=== PATIENT | female | born 1995 | race Caucasian/White ===

== ENCOUNTER 2018-03-26 22:17 | Emergency (ER) | payer OTHER ==
[~2018-03-26 22:17] MED LIST: birth control
[2018-03-27 05:00] LABS: BACTERIA,URINE FEW /HPF (0-FEW); BILIRUBIN,URINE NEG (NEG); CLARITY,URINE HAZY; COLOR,URINE AMBER; GLUCOSE,URINE NEG (NEG); NITRITE,URINE NEG (NEG); RBC,URINE TNTC /HPF (0-2); SQUAMOUS EPITHELIAL CELL,UR FEW /LPF; UROBILINOGEN,URINE 0.2 mg/dL (0.2 mg/dL)
[2018-03-27 05:01] LABS: U PREG PATIENT NEGATIVE (NEG)
[2018-03-27 05:03] LABS: BASO # 0.1 x10^3/uL (0.0-0.2); BASO % 1 % (0-3); EOS # 0.1 x10^3/uL (0.0-0.7); EOS % 1 % (0-3); HEMATOCRIT 42.1 % (36.0-47.0); HEMOGLOBIN 14.2 g/dL (12.0-15.5); LYMPH # 2.7 x10^3/uL (1.0-4.8); LYMPH % 27 % (24-48); MEAN CORPUSCULAR HEMOGLOBIN 28 pg (25-35); MEAN CORPUSCULAR HGB CONC 34 g/dL (31-37); MEAN CORPUSCULAR VOLUME 82 fL (79-100); MONO # 0.6 x10^3/uL (0.0-1.1); MONO % 6 % (0-9); NEUT # 6.7 x10^3uL (1.8-7.7); NEUT % 66 % (31-73); PLATELET COUNT 334 x10^3/uL (140-400); RED BLOOD COUNT 5.13 x10^6/uL (3.50-5.40); RED CELL DISTRIBUTION WIDTH 14.2 % (11.5-14.5); WHITE BLOOD COUNT 10.1 x10^3/uL (4.0-11.0)
[2018-03-27 05:06] LABS: CALCIUM 8.5 mg/dL (8.5-10.1); CREATININE 0.8 mg/dL (0.6-1.0); GFR 90.5; POTASSIUM 3.4 mmol/L (3.5-5.1)
--- NOTE | 2018-03-27 06:02 | ED.ADGEN ---
Past History Past Medical History: Anemia, Constipation, UTI Past Surgical History: No Surgical History Smoking: Non-smoker Alcohol Use: None Drug Use: None Adult General Chief Complaint Chief Complaint ".. I seen my DrGabino up stairs.. she said I had a UTI.. and I just completed my Bactrim.. I... I am still constipated.. and I feel like I can't urinate..." HPI HPI Patient is a 22 year old female who presents with complaints of constipation, recent UTI, distention, generalized abdomen discomfort and urinary retention. Patient has just completed 3 days of Bactrim twice a day. Patient did have a hard stool this morning. Patient denies any travel or specific ill contacts. Patient denies any history immunosuppression. Patient denies any history of renal stones with him or family members. Patient denies any history of colitis with her or family members. Patient states she is just finishing her period. Denies any intake of bad food. No hx. of STD's or concerns. Denies trauma. Review of Systems Review of Systems Constitutional: Denies fever or chills [] Eyes: Denies change in visual acuity, redness, or eye pain [] HENT: Denies nasal congestion or sore throat [] Respiratory: Denies cough or shortness of breath [] Cardiovascular: No additional information not addressed in HPI [] GI: Complaints of generalized abdominal pain, nausea. No vomiting, bloody stools or diarrhea []complaints of constipation : Denies dysuria or hematuria [] Musculoskeletal: Denies back pain or joint pain [] Integument: Denies rash or skin lesions [] Neurologic: Denies headache, focal weakness or sensory changes [] Endocrine: Denies polyuria or polydipsia [] All other systems were reviewed and found to be within normal limits, except as documented in this note. Family History Family History Noncontributory to presentation Current Medications Current Medications See nursing for home medications Allergies Allergies Allergies Coded Allergies Type Severity Reaction Last Updated Verified No Known Drug Allergies 12/27/13 No Physical Exam Physical Exam Constitutional: Well developed, well nourished, mild distress, non-toxic appearance. [] HENT: Normocephalic, atraumatic, bilateral external ears normal, oropharynx moist, no oral exudates, nose normal. [] Eyes: PERRLA, EOMI, conjunctiva normal, no discharge. [] Neck: Normal range of motion, no tenderness, supple, no stridor. [] Cardiovascular:Heart rate regular rhythm, no murmur [] Lungs & Thorax: Bilateral breath sounds equal at apex auscultation [] Abdomen: Bowel sounds normal, soft, mild generalized tenderness, no masses, no pulsatile masses. Distended. Declines rectal or vaginal exam at this time. No true rebound Skin: Warm, dry, no erythema, no rash. [] Back: No tenderness, no CVA tenderness. [] Extremities: No tenderness, no cyanosis, no clubbing, ROM intact, no edema. [] No psoas or heeltap. Neurologic: Alert and oriented X 3, normal motor function, normal sensory function, no focal deficits noted. [] Psychologic: Affect anxious, judgement normal, mood normal. [] Current Patient Data Lab Results Laboratory Tests Test 03/27/18 00:01 03/27/18 00:31 Urine Collection Type Unknown Urine Color Cindy Urine Clarity Hazy Urine pH 6.5 Urine Specific [place] 1.020 Urine Protein 30 mg/dl (NEG-TRACE) Urine Glucose (UA) Neg mg/dL (NEG) Urine Ketones (Stick) Trace mg/dL (NEG) Urine Blood Large (NEG) Urine Nitrite Neg (NEG) Urine Bilirubin Neg (NEG) Urine Urobilinogen Dipstick 0.2 mg/dL (0.2 mg/dL) Urine Leukocyte Esterase Trace (NEG) Urine RBC Tntc /HPF (0-2) Urine WBC 5-10 /HPF (0-4) Urine Squamous Epithelial Cells Few /LPF Urine Bacteria Few /HPF (0-FEW) Urine Test Negative (NEG) White Blood Count 10.1 x10^3/uL (4.0-11.0) Red Blood Count 5.13 x10^6/uL (3.50-5.40) Hemoglobin 14.2 g/dL (12.0-15.5) Hematocrit 42.1 % (36.0-47.0) Mean Corpuscular Volume 82 fL (79-100) Mean Corpuscular Hemoglobin 28 pg (25-35) Mean Corpuscular Hemoglobin Concent 34 g/dL (31-37) Red Cell Distribution Width 14.2 % (11.5-14.5) Platelet Count 334 x10^3/uL (140-400) Neutrophils (%) (Auto) 66 % (31-73) Lymphocytes (%) (Auto) 27 % (24-48) Monocytes (%) (Auto) 6 % (0-9) Eosinophils (%) (Auto) 1 % (0-3) Basophils (%) (Auto) 1 % (0-3) Neutrophils # (Auto) 6.7 x10^3uL (1.8-7.7) Lymphocytes # (Auto) 2.7 x10^3/uL (1.0-4.8) Monocytes # (Auto) 0.6 x10^3/uL (0.0-1.1) Eosinophils # (Auto) 0.1 x10^3/uL (0.0-0.7) Basophils # (Auto) 0.1 x10^3/uL (0.0-0.2) Sodium Level 136 mmol/L (136-145) Potassium Level 3.4 mmol/L (3.5-5.1) L Chloride Level 102 mmol/L (98-107) Carbon Dioxide Level 21 mmol/L (21-32) Anion Gap 13 (6-14) Blood Urea Nitrogen 12 mg/dL (7-20) Creatinine 0.8 mg/dL (0.6-1.0) Estimated GFR (Cockcroft-Gault) 90.5 Glucose Level 92 mg/dL (70-99) Calcium Level 8.5 mg/dL (8.5-10.1) EKG EKG [] Radiology/Procedures Radiology/Procedures My interpretation acute abdomen film shows no acute cardiopulmonary findings. No free air in the diaphragm. Nonobstructive bowel gas pattern.[] Course & Med Decision Making Course & Med Decision Making Pertinent Labs and Imaging studies reviewed. (See chart for details) Patient urinated and then had a check for residual urine- patient had less than 50 mL Patient to remain on a clear fluid diet for the next couple days. Patient to push clear fluids. Patient take Tylenol and ibuprofen for discomfort. Patient return if any focalization of pain. If increased pain return for a reexam. Patient expect diarrhea by morning due to the milk of magnesia. Patient to follow-up primary care. Patient to push fruit juices for her low potassium. Patient return if any concerns. [] Final Impression Final Impression 1. Abdomen pain 2. Constipation 3. Low Potassium 3.4 [] Dragon Disclaimer Dragon Disclaimer This electronic medical record was generated, in whole or in part, using a voice recognition dictation system. MELYSSA HERNANDEZ MD Mar 27, 2018 06:02
--- NOTE | 2018-03-28 14:46 | RAD ---
EXAM: Abdomen acute complete. HISTORY: Pain. COMPARISON: None. FINDINGS: A frontal view of the chest and frontal upright and supine views of the abdomen are obtained. There is no infiltrate, pleural effusion or pneumothorax. The heart is normal in size. There is a small amount of gas within nondistended loops of bowel within the abdomen. There is no bowel distention or free air. IMPRESSION: 1. No acute pulmonary finding. 2. Nonobstructive bowel gas pattern. Electronically signed by: Loni Wolff MD (03/28/2018 2:43 PM) [id number]
== END 2018-03-27 03:15 | disposition home or self-care (01) ==
LOC: ER 22:17
DX: K59.00 Constipation, unspecified (principal); E87.6 Hypokalemia; Z86.2 Personal history of diseases of the blood and blood-forming organs and certain disorders involving the immune mechanism; Z87.440 Personal history of urinary (tract) infections
CPT/HCPCS: 36415; 74022; 80048; 81001; 81025; 85025; 87086; 99284

== ENCOUNTER → 2018-08-23 | Outpatient (CLI) | payer OTHER ==
--- NOTE | 2018-08-23 13:24 | RAD ---
Abdominal ultrasound complete HISTORY: Abdominal pain in March 2018. FINDINGS: Pancreas, aorta and inferior vena cava are poorly visualized. No evidence of gallstone or gallbladder wall thickening. The liver is mildly enlarged at 19 cm of the right lobe. Right kidney measures 10.9 seen longitudinal without hydronephrosis. Left kidney measures 10.3 seen longitudinal without hydronephrosis. Spleen is not enlarged. Common bile duct measures 5 mm. IMPRESSION: 1. Mild hepatomegaly. 2. Limited visualization of midline structures. Pelvic ultrasound HISTORY: Pelvic pain. UTIs. Transabdominal scan: Uterus measures 8.2 x 3.9 x 5.4 cm. Endometrial stripe measures 6 mm. Left ovary measures 3.0 cm with intact blood supply. Right ovary measures 3.7 cm with intact blood supply. Urinary bladder volume is 558 cc prior to voiding. Post void urinary bladder volume is 53 cc. There is mild free fluid in the cul-de-sac with internal echoes. Endovaginal scan: Uterus measures 8.3 x 3.7 x 5.8 cm. Endometrium is homogeneous and measures 4 mm thickness. Right ovary measures 3.9 cm with multiple small follicles and intact vascularity. Left ovary measures 3.6 cm with small follicles and intact vascularity. IMPRESSION: 1. No evidence of abnormality involving uterus or ovaries. 2. Mild free pelvic fluid with internal echoes, raising the question of hemoperitoneum. Although nonspecific this can be seen with a ruptured ovarian cyst. Electronically signed by: Richy Soares MD (08/23/2018 1:21 PM) [id number]
== END | disposition home or self-care (01) ==
LOC: US 08:16
PROVIDERS: ATTEND Physician Assistant Medical
DX: R16.0 Hepatomegaly, not elsewhere classified (principal)
CPT/HCPCS: 76700; 76830; 76856

== ENCOUNTER → 2018-12-20 | Outpatient (CLI) | payer OTHER ==
[2018-12-20 16:26] LABS: BASO # 0.1 x10^3/uL (0.0-0.2); BASO % 1 % (0-3); EOS # 0.1 x10^3/uL (0.0-0.7); EOS % 2 % (0-3); HEMATOCRIT 40.9 % (36.0-47.0); HEMOGLOBIN 13.8 g/dL (12.0-15.5); LYMPH % 35 % (24-48); MEAN CORPUSCULAR HEMOGLOBIN 29 pg (25-35); MEAN CORPUSCULAR HGB CONC 34 g/dL (31-37); MEAN CORPUSCULAR VOLUME 84 fL (79-100); MONO # 0.6 x10^3/uL (0.0-1.1); MONO % 7 % (0-9); NEUT # 4.8 x10^3uL (1.8-7.7); NEUT % 56 % (31-73); PLATELET COUNT 341 x10^3/uL (140-400); RED BLOOD COUNT 4.85 x10^6/uL (3.50-5.40); RED CELL DISTRIBUTION WIDTH 13.8 % (11.5-14.5); WHITE BLOOD COUNT 8.5 x10^3/uL (4.0-11.0)
[2018-12-20 16:42] LABS: ALBUMIN 3.8 g/dL (3.4-5.0); CALCIUM 8.5 mg/dL (8.5-10.1); CREATININE 0.7 mg/dL (0.6-1.0); GFR 104.6; TOTAL BILIRUBIN 0.2 mg/dL (0.2-1.0); TOTAL PROTEIN 7.7 g/dL (6.4-8.2)
[2018-12-21 20:37] LABS: THYROID STIM HORMONE (TSH) 1.078 uIU/mL (0.358-3.740)
== END | disposition home or self-care (01) ==
LOC: PMG 15:39
PROVIDERS: ATTEND Registered Nurse
DX: Z13.6 Encounter for screening for cardiovascular disorders (principal); Z13.29 Encounter for screening for other suspected endocrine disorder; R07.89 Other chest pain; R00.0 Tachycardia, unspecified; R53.83 Other fatigue
CPT/HCPCS: 36415; 80053; 80061; 84443; 85025

== ENCOUNTER 2020-05-11 19:07 | Emergency (ER) | payer BC, OTHER ==
[~2020-05-11] VITALS: Ht 154.9 cm; Wt 84.3 kg
[2020-05-11 19:10] VITALS: BP 106/54
--- NOTE | 2020-05-11 19:35 | PHYS DOC ---
Past History Past Medical History: Anemia, Constipation, UTI Past Surgical History: Other Additional Past Surgical Histo: right elbow Smoking: Non-smoker Alcohol Use: None Drug Use: None General Adult EDM: Chief Complaint: ABDOMINAL PAIN IN HPI: HPI: Patient is a 24-year-old female at approximately 8 weeks gestational age by LMP of 123. Patient states that today she has had 4 episodes of emesis after eating. Also complaining of some lower abdominal intermittent cramping. Denies any pain now. Denies any vaginal bleeding or discharge. States she was treated for urinary tract infection and completed antibiotics 2 to 3 weeks ago. Patient states she has been having some dysuria without any hematuria. Denies any systemic complaints. Last bowel movement 2 days ago. Denies any complications with this or previous . Has not seen her [employer] for this yet. Review of Systems: Review of Systems: All other systems within normal limits except for as noted in the HPI Allergies: Allergies: Allergies Coded Allergies Type Severity Reaction Last Updated Verified sulfamethoxazole Allergy Unknown 05/11/20 Yes trimethoprim Allergy Unknown 05/11/20 Yes Physical Exam: PE: Constitutional: Well developed, well nourished, no acute distress, non-toxic appearance. [] HENT: Normocephalic, atraumatic, bilateral external ears normal, nose normal. [] Eyes: PERRLA, conjunctiva normal, no discharge. [] Neck: No rigidity, supple, no stridor. [] Cardiovascular: Regular rate and rhythm, brisk cap refill [] Lungs & Thorax: Non labored symmetric respirations, no tachypnea or respiratory distress [] Abdomen: Soft, nondistended, no masses. No guarding or rebound. No point tenderness.. Skin: Warm, dry, no erythema, no rash. [] Back: Unremarkable Extremities: No deformities, range of motion grossly intact, no lower extremity edema [] Neurologic: Alert and oriented X 3, no focal deficits noted. [] Psychologic: Affect normal, judgement normal, mood normal. [] Current Patient Data: Vital Signs: Vital Signs Date Time Temp Pulse Resp B/P (MAP) Pulse Ox O2 Delivery O2 Flow Rate FiO2 05/11/20 19:10 98.7 98 20 106/54 (71) 100 Room Air EKG: EKG: [] Radiology/Procedures: Radiology/Procedures: [] Heart Score: C/O Chest Pain: N/A Risk Factors: Risk Factors: DM, Current or recent (<one month) smoker, HTN, HLP, family history of CAD, obesity. Risk Scores: Score 0 - 3: 2.5% MACE over next 6 weeks - Discharge Home Score 4 - 6: 20.3% MACE over next 6 weeks - Admit for Clinical Observation Score 7 - 10: 72.7% MACE over next 6 weeks - Early Invasive Strategies Course & Med Decision Making: Course & Med Decision Making Swabs and urine showed yeast, bacterial vaginosis, UTI. Will treat for all. Discussed return precautions. Nonfocal and benign abdominal exam, no lateralizing pain. Discussed hydration with patient and treatment for constipation. Discussed return precautions for ectopic . No ultrasound onsite tonight and no physical exam or history concerns for ectopic . [] Dragon Disclaimer: Dragon Disclaimer: This electronic medical record was generated, in whole or in part, using a voice recognition dictation system. Departure Departure: Impression: Primary Impression: Bacterial vaginosis in Additional Impressions: UTI (urinary tract infection) during Vagina, candidiasis Disposition: HOME SELF CARE/HOMELESS Condition: STABLE Referrals: KENNETH TEJEDA (PCP) Patient Instructions: Bacterial Vaginosis Scripts Miconazole Nitrate (MONISTAT 7) 45 Gm Cream.appl 1 APPFUL VG QHS for yeast for 7 Days, #45 GM 0 Refills Prov: ALICE VILA MD 05/11/20 Ondansetron (ONDANSETRON ODT) 4 Mg Tab.rapdis 1 TAB PO PRN Q6-8HRS PRN for NAUSEA for 5 Days, #16 TAB Prov: ALICE VILA MD 05/11/20 Metronidazole (METRONIDAZOLE) 250 Mg Tablet 1 TAB PO Q8HRS for antiobiotic for 7 Days, #21 TAB Prov: ALICE VILA MD 05/11/20 Cephalexin (CEPHALEXIN) 500 Mg Tablet 1 TAB PO BID for antibiotic for 5 Days, #10 TAB Prov: ALICE VILA MD 05/11/20 ALICE VILA MD May 11, 2020 19:35
[2020-05-11] MEDS ORDERED: ONDANSETRON ODT 4 MG TAB.RAPDIS PO ONE (19:45)
[2020-05-11 20:50] LABS: BILIRUBIN,URINE SMALL (NEG); CLARITY,URINE CLOUDY; COLOR,URINE YELLOW; GLUCOSE,URINE NEG (NEG); NITRITE,URINE NEG (NEG)
[2020-05-11 20:51] LABS: BACTERIA,URINE FEW /HPF (0-FEW); SQUAMOUS EPITHELIAL CELL,UR MANY /LPF; YEAST,URINE PRESENT /HPF
[2020-05-11] MEDS ORDERED: metroNIDAZOLE 250 MG TABLET PO ONE (21:15)
[2020-05-11] MEDS ORDERED: CEPHALEXIN 250 MG CAPSULE PO ONE (21:15)
[2020-05-11] MEDS ORDERED: CEPH500T PO (21:21)
[2020-05-11] MEDS ORDERED: ONDA4TAB12 PO (21:21)
[2020-05-11] MEDS ORDERED: MICO45CR41 VG (21:21)
[2020-05-11] MEDS ORDERED: METR-111 PO (21:21)
== END 2020-05-11 21:35 | disposition home or self-care (01) ==
LOC: ER 19:07
DX: O23.41 Unspecified infection of urinary tract in pregnancy, first trimester (principal); O23.591 Infection of other part of genital tract in pregnancy, first trimester; B96.89 Other specified bacterial agents as the cause of diseases classified elsewhere; O98.811 Other maternal infectious and parasitic diseases complicating pregnancy, first trimester; B37.3 Candidiasis of vulva and vagina; Z3A.08 8 weeks gestation of pregnancy; Z88.1 Allergy status to other antibiotic agents; Z88.2 Allergy status to sulfonamides
CPT/HCPCS: 81001; 81025; 87086; 87491; 87591; 99284; Q0111; Q0162

== ENCOUNTER → 2020-05-15 | Outpatient (CLI) | payer BC, OTHER ==
[2020-05-11 19:10] VITALS: BP 106/54
[~2020-05-15] MED LIST changes: +CEPH500T PO; +METR-111 PO; +MICO45CR41 VG; +ONDA4TAB12 PO
--- NOTE | 2020-05-15 16:29 | RAD ---
INDICATION : Reason: RUQ PAIN, NAUSEA / Spl. Instructions: / History: COMPARISON: August 2018 TECHNIQUE: Multiple ultrasound images obtained through the abdomen in grayscale and color. FINDINGS: Liver: Echogenic Gallbladder: No wall thickening or stones. IVC: Partially distended at level of liver. Common Bile Duct: Not dilated. Pancreas: Partially seen secondary to overlying structures obscuring. No adjacent fluid collection is identified at visualized portion. Right Kidney: No hydronephrosis. IMPRESSION: * Echogenic liver can be seen with fatty infiltration. Portions the liver not well seen secondary t o poor beam penetration through the echogenic parenchyma. Electronically signed by: Bull Max MD (05/15/2020 4:27 PM) [id number]
== END ==
LOC: US 05-16 14:50
PROVIDERS: ATTEND Nurse Practitioner Family
DX: K76.0 Fatty (change of) liver, not elsewhere classified (principal)
CPT/HCPCS: 76705